=== PATIENT | female | born 1985 | race Caucasian/White ===

== ENCOUNTER 2021-01-03 20:52 | Emergency (ER) | payer BC ==
[~2021-01-03 20:52] MED LIST: Iopamidol 370 76% 100 ML VIAL ONE; Lidocaine Viscous Sol 2% 15 ml UD Cup ONE; Mag-Al Plus 1200 MG/1200 MG/120 MG/30 ML UDCUP ONE
[2021-01-03] MEDS ORDERED: Pantoprazole 40 MG VIAL ONE (21:17)
[2021-01-03] MEDS ORDERED: Sodium Chloride 0.9% 1,000 ML ONE (21:17)
[2021-01-03] MEDS ORDERED: Morphine 4 MG/ML VIAL ONE ×2 (21:17→23:56)
[2021-01-03] MEDS ORDERED: Ondansetron PF 4 MG/2 ML Vial ONE (21:17)
[2021-01-03 21:22] LABS: Bilirubin Negative (Negative); Blood, Urine Trace (Negative); Clarity Clear (Clear); Glucose, Urine (Dipstick) Negative (Negative); Ketone, Urine Negative (Negative); Leukocyte Negative (Negative); Nitrite Negative (Negative); Protein, Urine (Dipstick) Negative (Neg-Trace); Urobilinogen 0.2 mg/dL (Less than 2); pH, Urine 8.5 (5.0-9.0)
[2021-01-03 21:25] LABS: Pregnancy Test - Urine (BHCG) Negative (Negative); Pregu Control Bar Appear? YES (CONTROL BAR)
[2021-01-03 21:26] LABS: Pregu Control Background? CLEAR/WHITE (CLR/WHITE)
[2021-01-03 21:28] LABS: Bacteria/HPF Rare-Few HPF (None Seen); RBC/HPF 0-3 HPF (0-3); Squamous Epithelial None Seen HPF (0-3); WBC/HPF None Seen HPF (0-3)
[2021-01-03 21:31] LABS: Hemoglobin 13.2 g/dL (12.0-16.0); Mean Corpuscular HGB CONC 31.9 g/dL (32.0-36.0); Mean Corpuscular Hemoglobin 27.1 pg (27.0-31.0); Mean Corpuscular Volume 85.2 fL (78.0-98.0); Mean Platelet Volume 11.4 fL (7.4-10.4); Platelet Count 311 thou/uL (130-400); RBC Distribution Width 13.6 % (11.5-14.5); Red Blood Cell (RBC) Count 4.87 mill/uL (4.20-5.40); White Blood Cell (WBC) Count 9.2 thou/uL (4.8-10.8)
[2021-01-03 21:32] LABS: Eosinophils 2 % (0-10); Lymphocytes 41 % (21-51); MDiff Complete? YES; Monocytes 12 % (0-10); Neutrophil 45 % (42-75); Platelet Morphology Comment Appears Adequate; RBC Morphology Normal
[2021-01-03 21:46] LABS: ALT (SGPT) 13 U/L (8-55); AST (SGOT) 20 U/L (5-34); Albumin 4.4 g/dL (3.5-5.0); Alkaline Phosphatase 53 U/L (40-110); Anion Gap 16 mmol/L (10-20); BUN (Urea Nitrogen) 10 mg/dL (7.0-18.7); Bilirubin, Total 0.2 mg/dL (0.2-1.2); CK (CPK) 117 U/L (29-168); Calc. Creatinine Clearance 0 mL/min (70-130); Calcium 9.1 mg/dL (7.8-10.44); Carbon Dioxide 25 mmol/L (22-29); Chloride 105 mmol/L (98-107); Globulin 2.5 g/dL (2.4-3.5); Glucose 86 mg/dL (70-105); Lipase 33 U/L (8-78); Potassium 4.8 mmol/L (3.5-5.1); Protein, Total 6.9 g/dL (6.0-8.3); Sodium 141 mmol/L (136-145)
[2021-01-03 23:07] LABS: Amphetamine Not Detected (NotDetected); Barbiturates Screen Not Detected (NotDetected); Benzodiazepine Screen Not Detected (NotDetected); Cocaine Metabolite Screen Not Detected (NotDetected); Medtox Control Line Valid? VALID (VALID); Methadone Not Detected (NotDetected); Methamphetamine Not Detected (NotDetected); Opiate Screen Not Detected (NotDetected); Oxycodone Screen Not Detected (NotDetected); Phencyclidine (PCP) Not Detected (NotDetected); THC/Cannabinoid Screen Detected (NotDetected); Tricyclic Screen Not Detected (NotDetected)
== END 2021-01-04 00:07 | disposition short-term general hospital (02) ==
LOC: MADERS 20:52
DX: R10.11 Right upper quadrant pain (principal); R10.13 Epigastric pain; R11.2 Nausea with vomiting, unspecified; F12.10 Cannabis abuse, uncomplicated; R63.0 Anorexia; Z79.899 Other long term (current) drug therapy
CPT/HCPCS: 71045; 74177; 80053; 80306; 81003; 81015; 81025; 82150; 82550; 83690; 84484; 85025; 86140; 94760; 96361; 96374; 96375; 96376; C9113; J2270; J2405; J7050; Q9967